=== PATIENT | female | born 1955 | race Caucasian/White ===

== ENCOUNTER 2019-03-11 09:33 | Inpatient (IN) ==
[2019-03-11] MEDS ORDERED: ALBUTEROL NEB SOLN 5 MG/ML 20 ML/BOTTLE CONT NEB STA (09:43)
[2019-03-11] MEDS ORDERED: methylPREDNISolone SOD SUC 125 MG/2 ML VIAL IV STA (10:05)
[2019-03-11 10:13] LABS: Basophils # 0.1 10*3/uL (0.0-0.2); Basophils % 0.7 % (0.0-0.8); Eosinophils # 0.5 10*3/uL (0.0-0.87); Eosinophils % 4.7 % (0.00-10.9); Immature Granulocytes % 1.6 %; Immature Granulocytes Absolute 0.15 #; Lymphocytes # 2.6 10*3/uL (1.4-4.0); Lymphocytes % 27.2 % (21.3-54.2); Mean Corpuscular HGB Conc 30.8 GM/DL (32-36); Mean Corpuscular Volume 91.5 FL (87-102); Mean Platelet Volume 8.9 FL (9.6-12.0); Monocytes % 5.5 % (1.7-12.7); Neutrophils % 60.3 % (38.7-73.9); Platelet Count 450 T/CUMM (130-400); Red Blood Count 4.26 MC/CUMM (3.8-5.5); Red Cell Distribution Width 13.4 % (9.3-17.3); White Blood Count 9.6 T/CUMM (4-12)
[2019-03-11 10:25] LABS: Alanine Aminotransferase 14 U/L (13-56); Albumin 3.8 G/DL (3.4-5.0); Alkaline Phosphatase 112 U/L (45-117); Aspartate Amino Transferase 14 U/L (0-37); Bilirubin,Total < 0.39 MG/DL (0.2-1.0); Blood Urea Nitrogen 15 MG/DL (7-18); Calcium 9.3 MG/DL (8.5-10.1); Glucose 100 MG/DL (74-106); Osmolality,Calculated 279.4 MOS/KG (273-304); Total Protein 7.1 G/DL (6.4-8.3)
[2019-03-11] MEDS ORDERED: ALBUTEROL 2.5 MG/3 ML NEB RESP TX SCH (10:30)
[2019-03-11] MEDS ORDERED: BISACODYL 5 MG TABLET PO PRN (11:42)
[2019-03-11] MEDS ORDERED: LACTULOSE 20 GM/30 ML UDCUP PO PRN (11:42)
[2019-03-11] MEDS ORDERED: ONDANSETRON 4 MG/2 ML VIAL IV PRN (11:42)
[2019-03-11] MEDS: ENOXAPARIN 40 MG/0.4 ML SYRINGE SUBCUT SCH (13:58)
[2019-03-11 14:44] LABS: Apearance,Urine CLEAR (Clear); Bacteria,Urine Occasional /HPF (Few); Bilirubin,Urine Negative (Negative); Blood, Urine Negative (Negative); Glucose,Urine (UA) Negative (Negative); Ketones,Urine Negative (Negative); Mucus,Urine Occasional /LPF (Occasional); Nitrite,Urine Negative (Negative); Protein,Urine Negative; Squamous Epithelial Cell,Urine Occasional /HPF (0-10); Urine Color Yellow (Yellow); Urine Specific Gravity 1.012 (1.001-1.035); Urine Urobilinogen < 2.0 EU/DL (0.2-1.0)
[2019-03-11] MEDS ORDERED: ALBUTEROL 2.5 MG/3 ML NEB RESP TX PRN (14:55)
[2019-03-11] MEDS ORDERED: ALBUTEROL/IPRATROPIUM 3 ML NEB RESP TX SCH (15:00)
[2019-03-11] MEDS ORDERED: DOXYCYCLINE HYCLATE 100 MG CAPSULE PO SCH (17:00)
[2019-03-11] MEDS: methylPREDNISolone SOD SUC 40 MG/1 ML VIAL IV SCH (17:23)
[2019-03-11] MEDS: ALBUTEROL/IPRATROPIUM 3 ML NEB RESP TX SCH (19:23)
[2019-03-11] MEDS: DULoxetine 30 MG CAPSULE PO SCH (21:22)
[2019-03-11] MEDS: PANTOPRAZOLE 40 MG TABLET PO SCH (21:22)
[2019-03-11] MEDS: traZODone 50 MG TABLET PO SCH (21:22)
[2019-03-11] MEDS: Dextroamphetamine-Amphetamine [Adderall] 20 MG PO SCH (21:23)
[2019-03-11] MEDS: FLUTICASONE/SALMETEROL 500-50 DISKUS 14 DOSE INH SCH (21:31)
[2019-03-11] MEDS: MONTELUKAST 10 MG TABLET PO SCH (22:20)
[2019-03-11] MEDS: guaiFENesin/DM ER 600-30 MG TABLET PO PRN (22:20)
[2019-03-12] MEDS: ALBUTEROL/IPRATROPIUM 3 ML NEB RESP TX SCH ×4 (01:00→19:18)
[2019-03-12] MEDS: methylPREDNISolone SOD SUC 40 MG/1 ML VIAL IV SCH ×3 (01:35→19:10)
[2019-03-12 05:33] LABS: Basophils % 0.2 % (0.0-0.8); Hematocrit 37.6 VOL% (35.7-47.0); Hemoglobin 11.6 GM/DL (12.0-16.0); Immature Granulocytes % 1.8 %; Immature Granulocytes Absolute 0.28 #; Lymphocytes # 1.2 10*3/uL (1.4-4.0); Lymphocytes % 7.6 % (21.3-54.2); Mean Corpuscular HGB Conc 30.9 GM/DL (32-36); Mean Corpuscular Volume 91.7 FL (87-102); Mean Platelet Volume 9.3 FL (9.6-12.0); Monocytes % 2.9 % (1.7-12.7); Neutrophils % 87.5 % (38.7-73.9); Platelet Count 477 T/CUMM (130-400); Red Cell Distribution Width 13.4 % (9.3-17.3)
[2019-03-12 06:09] LABS: Calcium 9.4 MG/DL (8.5-10.1); Osmolality,Calculated 284.4 MOS/KG (273-304)
[2019-03-12] MEDS: hydroCHLOROthiazide 25 MG TABLET PO SCH (08:46)
[2019-03-12] MEDS: VALSARTAN 80 MG TABLET PO SCH (08:46)
[2019-03-12] MEDS: ESTRADIOL 1 MG TABLET PO SCH (08:46)
[2019-03-12] MEDS: ATORVASTATIN 80 MG TABLET PO SCH (08:47)
[2019-03-12] MEDS: PANTOPRAZOLE 40 MG TABLET PO SCH ×2 (08:48→20:54)
[2019-03-12] MEDS: FLUTICASONE/SALMETEROL 500-50 DISKUS 14 DOSE INH SCH ×2 (08:48→20:53)
[2019-03-12] MEDS: DULoxetine 30 MG CAPSULE PO SCH ×2 (09:00→10:22)
[2019-03-12] MEDS ORDERED: PANTOPRAZOLE 40 MG TABLET PO SCH (09:00)
[2019-03-12] MEDS: Dextroamphetamine-Amphetamine [Adderall] 20 MG PO SCH ×2 (10:20→20:54)
[2019-03-12] MEDS: ENOXAPARIN 40 MG/0.4 ML SYRINGE SUBCUT SCH (12:22)
[2019-03-12] MEDS: MONTELUKAST 10 MG TABLET PO SCH (20:54)
[2019-03-12] MEDS: traZODone 50 MG TABLET PO SCH (20:54)
[2019-03-12] MEDS: guaiFENesin/DM ER 600-30 MG TABLET PO PRN (20:54)
[2019-03-13] MEDS: ALBUTEROL/IPRATROPIUM 3 ML NEB RESP TX SCH ×4 (01:30→19:30)
[2019-03-13] MEDS: methylPREDNISolone SOD SUC 40 MG/1 ML VIAL IV SCH ×3 (05:03→18:26)
[2019-03-13 07:58] LABS: Basophils % 0.2 % (0.0-0.8); Hematocrit 37.9 VOL% (35.7-47.0); Hemoglobin 11.9 GM/DL (12.0-16.0); Immature Granulocytes % 1.5 %; Immature Granulocytes Absolute 0.34 #; Lymphocytes # 1.9 10*3/uL (1.4-4.0); Lymphocytes % 8.3 % (21.3-54.2); Mean Corpuscular HGB Conc 31.4 GM/DL (32-36); Mean Platelet Volume 9.2 FL (9.6-12.0); Monocytes % 2.5 % (1.7-12.7); Neutrophils % 87.5 % (38.7-73.9); Platelet Count 457 T/CUMM (130-400); Red Blood Count 4.12 MC/CUMM (3.8-5.5); Red Cell Distribution Width 13.6 % (9.3-17.3); White Blood Count 23.1 T/CUMM (4-12)
[2019-03-13 08:20] LABS: Lymphocytes 5 % (20-55); Segmented Neutrophils 94 % (50-85); Total Cells Counted 100
[2019-03-13 08:21] LABS: Hypochromasia Slight; Microcytosis Slight
[2019-03-13 08:38] LABS: Calcium 8.9 MG/DL (8.5-10.1); Osmolality,Calculated 288.1 MOS/KG (273-304)
[2019-03-13] MEDS: DULoxetine 30 MG CAPSULE PO SCH (09:08)
[2019-03-13] MEDS: VALSARTAN 80 MG TABLET PO SCH (09:09)
[2019-03-13] MEDS: PANTOPRAZOLE 40 MG TABLET PO SCH ×2 (09:09→21:48)
[2019-03-13] MEDS: hydroCHLOROthiazide 25 MG TABLET PO SCH (09:09)
[2019-03-13] MEDS: ESTRADIOL 1 MG TABLET PO SCH (09:09)
[2019-03-13] MEDS: guaiFENesin/DM ER 600-30 MG TABLET PO PRN ×2 (09:09→21:48)
[2019-03-13] MEDS: ATORVASTATIN 80 MG TABLET PO SCH (09:09)
[2019-03-13] MEDS: Dextroamphetamine-Amphetamine [Adderall] 20 MG PO SCH ×2 (09:10→21:53)
[2019-03-13] MEDS: FLUTICASONE/SALMETEROL 500-50 DISKUS 14 DOSE INH SCH ×2 (09:10→21:48)
[2019-03-13] MEDS: MONTELUKAST 10 MG TABLET PO SCH (21:48)
[2019-03-13] MEDS: traZODone 50 MG TABLET PO SCH (21:48)
[2019-03-14] MEDS: ALBUTEROL/IPRATROPIUM 3 ML NEB RESP TX SCH ×4 (00:52→18:45)
[2019-03-14] MEDS: methylPREDNISolone SOD SUC 40 MG/1 ML VIAL IV SCH ×2 (02:19→10:41)
[2019-03-14 05:14] LABS: Basophils # 0.1 10*3/uL (0.0-0.2); Basophils % 0.4 % (0.0-0.8); Lymphocytes # 2.1 10*3/uL (1.4-4.0); Lymphocytes % 10.2 % (21.3-54.2); Monocytes % 3.6 % (1.7-12.7); White Blood Count 20.1 T/CUMM (4-12)
[2019-03-14 05:42] LABS: Hypochromasia 1+; Microcytosis Slight; Platelet Estimate Adequate
[2019-03-14] MEDS ORDERED: LACTATED RINGERS 1,000 ML IV SCH (06:30)
[2019-03-14] MEDS ORDERED: ETOMIDATE 20 MG/10 ML VIAL IV ONE (09:22)
[2019-03-14] MEDS ORDERED: PROPOFOL 200 MG/20 ML VIAL IV ONE (09:22)
[2019-03-14] MEDS ORDERED: LIDOCAINE 100 MG/5 ML SYRINGE ONE (09:22)
[2019-03-14] MEDS: hydroCHLOROthiazide 25 MG TABLET PO SCH (10:40)
[2019-03-14] MEDS: VALSARTAN 80 MG TABLET PO SCH (10:40)
[2019-03-14] MEDS: DULoxetine 30 MG CAPSULE PO SCH (10:40)
[2019-03-14] MEDS: FLUTICASONE/SALMETEROL 500-50 DISKUS 14 DOSE INH SCH ×2 (10:40→21:38)
[2019-03-14] MEDS: ESTRADIOL 1 MG TABLET PO SCH (10:40)
[2019-03-14] MEDS: PANTOPRAZOLE 40 MG TABLET PO SCH ×2 (10:41→21:38)
[2019-03-14] MEDS: ATORVASTATIN 80 MG TABLET PO SCH (10:41)
[2019-03-14] MEDS: Dextroamphetamine-Amphetamine [Adderall] 20 MG PO SCH ×2 (10:48→21:38)
[2019-03-14] MEDS: MONTELUKAST 10 MG TABLET PO SCH (21:38)
[2019-03-14] MEDS: traZODone 50 MG TABLET PO SCH (21:38)
[2019-03-15] MEDS: ALBUTEROL/IPRATROPIUM 3 ML NEB RESP TX SCH ×3 (00:15→14:32)
[2019-03-15 04:51] LABS: Basophils # 0.1 10*3/uL (0.0-0.2); Basophils % 0.7 % (0.0-0.8); Eosinophils % 0.1 % (0.00-10.9); Hematocrit 40.2 VOL% (35.7-47.0); Hemoglobin 12.2 GM/DL (12.0-16.0); Immature Granulocytes % 4.8 %; Lymphocytes # 4.4 10*3/uL (1.4-4.0); Lymphocytes % 26.1 % (21.3-54.2); Mean Corpuscular HGB Conc 30.3 GM/DL (32-36); Mean Corpuscular Volume 92.2 FL (87-102); Neutrophils % 60.3 % (38.7-73.9); Platelet Count 452 T/CUMM (130-400); Red Blood Count 4.36 MC/CUMM (3.8-5.5); Red Cell Distribution Width 13.7 % (9.3-17.3); White Blood Count 16.7 T/CUMM (4-12)
[2019-03-15 05:14] LABS: Calcium 8.9 MG/DL (8.5-10.1); Osmolality,Calculated 284.3 MOS/KG (273-304)
[2019-03-15 05:22] LABS: Hypochromasia 1+; Lymphocytes 29 % (20-55); Microcytosis Slight; Platelet Estimate Adequate; Segmented Neutrophils 62 % (50-85); Total Cells Counted 100
[2019-03-15] MEDS ORDERED: predniSONE 20 MG TABLET PO SCH (09:00)
[2019-03-15] MEDS: FLUTICASONE/SALMETEROL 500-50 DISKUS 14 DOSE INH SCH (09:27)
[2019-03-15] MEDS: DULoxetine 30 MG CAPSULE PO SCH (09:27)
[2019-03-15] MEDS: ESTRADIOL 1 MG TABLET PO SCH (09:27)
[2019-03-15] MEDS: ATORVASTATIN 80 MG TABLET PO SCH (09:28)
[2019-03-15] MEDS: PANTOPRAZOLE 40 MG TABLET PO SCH (09:28)
[2019-03-15] MEDS: Dextroamphetamine-Amphetamine [Adderall] 20 MG PO SCH (09:48)
[2019-03-15] MEDS: VALSARTAN 80 MG TABLET PO SCH (09:49)
[2019-03-15] MEDS: hydroCHLOROthiazide 25 MG TABLET PO SCH (09:49)
[2019-03-15] MEDS ORDERED: SODIUM CHLORIDE 0.9% 500 ML IV ONE (10:40)
[2019-03-15 15:59] VITALS: BP 122/62
== END 2019-03-15 16:40 | disposition home or self-care (01) | DRG 202 ==
LOC: N.ED 09:33 → SUATTDRO 11:42 → N.EDINP 12:14 → N.5E 12:22
PROVIDERS: ADMIT Internal Medicine; ATTEND Family Medicine